=== PATIENT | male | born 1995 | race American Indian/Alaskan Native ===

== ENCOUNTER 2017-06-18 20:12 | Emergency (ER) | payer OTHER ==
[~2017-06-18] VITALS: Ht 177.8 cm; Wt 69.7 kg
[~2017-06-18 20:12] MED LIST: ALBU90OI; CODACEE120 PO
[2017-06-18] MEDS ORDERED: Amoxicillin500 MG PO (20:30)
[2017-11-04] MEDS ORDERED: Protonix40 MG PO (20:00)
== END 2017-06-18 20:36 | disposition home or self-care (01) ==
LOC: ER 20:12
DX: K02.9 Dental caries, unspecified (principal); F17.210 Nicotine dependence, cigarettes, uncomplicated; Z88.8 Allergy status to other drugs, medicaments and biological substances
CPT/HCPCS: 99283